=== PATIENT | male | born 1970 | race Caucasian/White ===

== ENCOUNTER 2022-09-20 23:35 | Emergency (ER) | payer OTHER ==
[~2022-09-20] VITALS: Ht 160 cm; Wt 73.0 kg
[2022-09-21] VITALS: BP 123/66
--- NOTE | 2022-09-21 00:03 | NUR ---
TO BED AMBULATORY
[2022-09-21 00:48] LABS: BASOPHILS # (AUTO) 0.1 K/uL (0.00-0.22); BASOPHILS % (AUTO) 0.7 % (0.0-2.0); EOSINOPHILS # (AUTO) 0.3 K/uL (0-0.4); HEMATOCRIT 43.5 % (36-52); HEMOGLOBIN 14.5 g/dL (12.0-18.0); LYMPHOCYTES # (AUTO) 3.6 K/uL (2.0-11.5); LYMPHOCYTES % (AUTO) 31.4 % (20.5-51.1); MEAN CORPUSCULAR HEMOGLOBIN 28 pg (27-31); MEAN CORPUSCULAR HGB CONC 33 g/dL (33-37); MEAN CORPUSCULAR VOLUME 84.3 fL (80-94); MONOCYTES # (AUTO) 0.7 K/uL (0.8-1.0); MONOCYTES % (AUTO) 5.9 % (1.7-9.3); NEUTROPHILS # (AUTO) 6.8 K/uL (1.8-7.7); PLATELET COUNT (AUTO) 294 K/uL (140-450); RED BLOOD CELL COUNT(AUTO) 5.17 MIL/uL (4.20-6.10); RED CELL DISTRIBUTION WIDTH 12.7 % (11.6-13.7); WHITE BLOOD COUNT (AUTO) 11.5 K/uL (4.8-10.8)
[2022-09-21 01:34] LABS: ANION GAP 16.3 (8-16); CARBON DIOXIDE 24.6 mmol/L (21-32); POTASSIUM 3.9 mmol/L (3.5-5.1)
[2022-09-21 01:35] LABS: ALBUMIN 3.7 g/dL (3.4-5.0); TOTAL BILIRUBIN 0.3 mg/dL (0.0-1.0)
[2022-09-21] MEDS ORDERED: DOCU-299 PO (03:07)
[2022-09-21 03:25] VITALS: BP 123/70
--- NOTE | 2022-09-21 03:25 | NUR ---
Patient discharged with v/s stable. Written and verbal after care instructions given and explained. Patient verbalized understanding. All questions addressed prior to discharge. Advised to follow up with colonoscopy. patient hna his were instructed if his bleeding is not sstoped he return to ED.
== END 2022-09-21 03:25 | disposition home or self-care (01) ==
LOC: MED 23:35
DX: K62.5 Hemorrhage of anus and rectum (principal); K59.09 Other constipation; K57.30 Diverticulosis of large intestine without perforation or abscess without bleeding; E11.9 Type 2 diabetes mellitus without complications; Z90.49 Acquired absence of other specified parts of digestive tract; Z79.899 Other long term (current) drug therapy; Z88.8 Allergy status to other drugs, medicaments and biological substances
CPT/HCPCS: 36415; 80053; 83690; 85025; 99284

== ENCOUNTER 2022-09-28 10:21 | Emergency (ER) | payer OTHER ==
[~2022-09-28] VITALS: Ht 157.5 cm; Wt 73.0 kg
[~2022-09-28 10:21] MED LIST: DOCU-299 PO
[2022-09-28 10:26] VITALS: BP 153/82
--- NOTE | 2022-09-28 10:32 | NUR ---
PT AMBULATED TO ER BED 8
[2022-09-28] MEDS ORDERED: SODIUM PHOSPHATE 118 ML ENEM RC ONE (10:55)
[2022-09-28] MEDS ORDERED: MORPHINE SULFATE 4 MG/ML SYR IM ONE (11:00)
[2022-09-28] MEDS ORDERED: KETOROLAC 15 MG/ML VIAL IM ONE (11:00)
[2022-09-28 11:25] LABS: ALBUMIN 3.5 g/dL (3.4-5.0); ANION GAP 11.5 (8-16); CARBON DIOXIDE 27.6 mmol/L (21-32); POTASSIUM 4.1 mmol/L (3.5-5.1); TOTAL BILIRUBIN 0.3 mg/dL (0.0-1.0)
[2022-09-28 11:30] LABS: BASOPHILS # (AUTO) 0.1 K/uL (0.00-0.22); EOSINOPHILS # (AUTO) 0.3 K/uL (0-0.4); EOSINOPHILS % (AUTO) 3.1 % (0.0-4.0); HEMATOCRIT 42.2 % (36-52); HEMOGLOBIN 14.2 g/dL (12.0-18.0); LYMPHOCYTES # (AUTO) 2.7 K/uL (2.0-11.5); MEAN CORPUSCULAR HEMOGLOBIN 29 pg (27-31); MEAN CORPUSCULAR HGB CONC 34 g/dL (33-37); MEAN CORPUSCULAR VOLUME 84.5 fL (80-94); MONOCYTES # (AUTO) 0.7 K/uL (0.8-1.0); MONOCYTES % (AUTO) 7.2 % (1.7-9.3); NEUTROPHILS # (AUTO) 6.2 K/uL (1.8-7.7); NEUTROPHILS % (AUTO) 61.7 % (42.2-75.2); PLATELET COUNT (AUTO) 289 K/uL (140-450); RED BLOOD CELL COUNT(AUTO) 4.99 MIL/uL (4.20-6.10); RED CELL DISTRIBUTION WIDTH 12.6 % (11.6-13.7)
--- NOTE | 2022-09-28 11:30 | NUR ---
52/M PRESENTS TO ED WITH C/O RECTAL PAIN AND BRIGHT RED BLOOD FROM RECTUM INTERMITTENTLY X1 YEAR WORSENING THIS PAST WEEK. PATIENT STATES HE WAS SEEN HERE FOR SAME S/S LAST WEEK AND GIVEN STOOL SOFTENERS BUT REPORTS NO RELIEF. STATES OFTEN HAS BEEN CONSTIPATED RECENTLY, DENIES N/V/D.
[2022-09-28] MEDS ORDERED: MIRABULK PO (12:10)
[2022-09-28] MEDS ORDERED: HYDR25SU91 RC (12:11)
--- NOTE | 2022-09-28 12:36 | NUR ---
Patient discharged with v/s stable. Written and verbal after care instructions given and explained. Patient alert, oriented and verbalized understanding of instructions. Ambulatory with steady gait. All questions addressed prior to discharge. ID band removed. Patient advised to follow up with PMD. Rx of ANUSOL, MIRALAX given. Patient educated on indication of medication including possible reaction and side effects. Opportunity to ask questions provided and answered.
== END 2022-09-28 12:36 | disposition home or self-care (01) ==
LOC: MED 10:21
DX: K59.00 Constipation, unspecified (principal); K62.89 Other specified diseases of anus and rectum; E11.9 Type 2 diabetes mellitus without complications; I10 Essential (primary) hypertension; Z88.8 Allergy status to other drugs, medicaments and biological substances; Z79.4 Long term (current) use of insulin; Z79.899 Other long term (current) drug therapy
CPT/HCPCS: 36415; 80053; 85025; 96372; 99284; J1885

== ENCOUNTER 2022-10-04 11:34 | Day surgery (SDC) | payer OTHER ==
[~2022-10-04] VITALS: Ht 157.5 cm; Wt 74.8 kg
[~2022-10-04 11:34] MED LIST changes: +HYDR25SU91 RC; +MIRABULK PO
[2022-10-04] MEDS ORDERED: LIDOCAINE 2% 100 MG/5 ML UJET TP ONE (11:55)
[2022-10-04] MEDS ORDERED: MIDAZOLAM 5 MG/5 ML VIAL ONE (11:55)
[2022-10-04] MEDS ORDERED: fentaNYL citrate 0.05 MG/ML VIAL ONE (11:55)
[2022-10-04] MEDS ORDERED: diphenhydrAMINE 50 MG/ML VIAL ONE (11:55)
[2022-10-04] MEDS ORDERED: MIDAZOLAM 2 MG/2 ML VIAL IVP ONE (15:15)
[2022-10-04] MEDS ORDERED: fentaNYL citrate 0.05 MG/ML VIAL IVP ONE (15:15)
== END 2022-10-04 13:40 | disposition home or self-care (01) ==
LOC: MDS 11:34 → MMU 11:34 → MDS 13:38
PROVIDERS: ATTEND Internal Medicine Gastroenterology
DX: K62.5 Hemorrhage of anus and rectum (principal); K63.5 Polyp of colon; Z86.010 Personal history of colon polyps; K57.30 Diverticulosis of large intestine without perforation or abscess without bleeding; K64.8 Other hemorrhoids; E11.9 Type 2 diabetes mellitus without complications; E78.5 Hyperlipidemia, unspecified; Z90.49 Acquired absence of other specified parts of digestive tract; Z88.8 Allergy status to other drugs, medicaments and biological substances; Z79.84 Long term (current) use of oral hypoglycemic drugs; Z79.899 Other long term (current) drug therapy; Z20.822 Contact with and (suspected) exposure to COVID-19
CPT/HCPCS: 45385; 87426; J2250; J3010; J1200